=== PATIENT | female | born 1950 | race Caucasian/White ===

== ENCOUNTER 2018-06-13 01:48 | Outpatient (RCR) | payer MEDICARE, SELFPAY ==
[2018-06-13 08:55] LABS: HCT 40.1 % (36.0-46.0); HGB 13.9 g/dL (12.0-15.5)
[2018-06-13 09:19] LABS: Ferritin 393 ng/mL (8-388)
== END 2018-07-07 23:59 | disposition home or self-care (01) ==
LOC: INF 01:48
PROVIDERS: Naturopath; PCP Family Medicine; Visit Provider Internal Medicine
DX: R77.8 Other specified abnormalities of plasma proteins (principal)
CPT/HCPCS: 36415; 99195; 82728; 85014; 85018

== ENCOUNTER 2018-09-09 15:13 | Emergency (ER) | payer MEDICARE, SELFPAY ==
[2018-09-09 15:20] VITALS: BP 184/87; PULSE 69; RESP 18; TEMP 36.8; O2SAT 99
[2018-09-09 15:42] VITALS: RESP 18
[2018-09-09 16:00] LABS: Abs Immature Grans 0.02 k/cumm (0.0-0.09); Absolute Basophil Count 0.04 k/cumm (0.0-0.2); Absolute Eosinophil Count 0.11 k/cumm (0.0-0.7); Absolute Monocyte Count 0.43 k/cumm (0.11-0.7); Absolute Neutrophil Count 3.87 k/cumm (1.2-6.7); Basophils % 0.7; Eosinophils % 1.9; HCT 43.2 % (36.0-46.0); HGB 14.9 g/dL (12.0-15.5); Immature Grans % 0.3; Lymphocytes % 23.9; Mean Corp. HGB Concentration 34.5 g/dL (32.0-36.0); Mean Corpuscular Hemoglobin 33.3 pg (27.0-33.0); Mean Corpuscular Volume 96.4 fL (80-95); Mean Platelet Volume 9.9 fL (8.0-11.0); Monocytes % 7.3; Neutrophils % 65.9; Platelet Count 304 x1000/uL (130-400); RBC 4.48 m/cumm (4.00-5.20); RBC Distribution Width 11.9 % (11.7-14.6); White Blood Cell Count 5.87 k/cumm (4.4-10.8)
--- NOTE | 2018-09-09 16:08 | W.ED.GENAD ---
Discharge Plan Disposition Patient Disposition: HOME Condition: Improving Discharge Details Chief Complaint: Chest Pain Clinical Impression: Chest pain Primary Care Provider: Umm Gamboa V ED Provider: Herbert Rubin Discharge Instructions Instructions: Chest Pain (ED) Additional Instructions: Followup with Sheryl Herbert in clinic on Wednesday as planned. Home to rest today. Return if you develop recurrent chest discomfort, difficulty breathing, or any other acute concerns. Medical Decision Making 68-year-old female presents this afternoon for evaluation of months to years of intermittent episodes of anterior left-sided chest tightness that often radiates to her neck and arm. She has primarily attributed this to stress and is seeing her Nematology Teacher. Today she states she has increased stress due to the recent hospitalization of her . She states that he had an acute myocardial infarction and for this reason today she presents for evaluation of her intermittent episodes of chest discomfort. She denies any discomfort to me at this time. She is noted to have hypertension 184/87 with a pulse of 69. Differential diagnosis includes angina, acute coronary syndrome, PE, atypical chest discomfort, anxiety. Labs, x-ray, EKG. EKG does reveal evidence of LVH and Q waves that are present in leads I and aVL. Chest x-ray is unremarkable. Labs reassuring and notable for normal troponin. Her d-dimer is elevated and referred for CT scan of the chest. No definitive evidence of pulmonary embolus seen. Patient observed on equipment monitor phototypesetting repeat troponin obtained at 3 hours time and remains negative. Patient is improved, no further discomfort, she has follow-up in clinic on Wednesday. I did discuss with her that I recommend she have outpatient follow-up stress testing. She will discuss this with PMD at this weeks clinic appointment. Return precautions to the ER were discussed prior to discharge Lab Data Lab results reviewed: Yes I reviewed the patient's lab results. Laboratory Results - last 24 hr 09/09/18 09/09/18 09/09/18 15:44 15:44 15:44 WBC 5.87 RBC 4.48 Hgb 14.9 Hct 43.2 MCV 96.4 H MCH 33.3 H MCHC 34.5 RDW 11.9 Plt Count 304 MPV 9.9 Immature Gran % 0.3 Neutrophils % 65.9 Lymphocytes % 23.9 Monocytes % 7.3 Eosinophils % 1.9 Basophils % 0.7 Absolute Neutrophils 3.87 Absolute Lymphocytes 1.40 Absolute Monocytes 0.43 Absolute Eosinophils 0.11 Absolute Basophils 0.04 PT 9.3 INR 0.9 D-Dimer 885 H Sodium 140 Potassium 3.8 Chloride 104 Carbon Dioxide 28.0 Anion Gap 8.0 BUN 10 Creatinine 0.91 Estimated GFR/1.73 m2 >= 60.00 Glucose 93 Calcium 9.6 Magnesium 2.3 Total Bilirubin 0.9 Conjugated Bilirubin 0.16 AST 19 ALT 29 Alkaline Phosphatase 79 Troponin I < 0.02 NT-Pro-B Natriuret Pep 38 Total Protein 7.9 Albumin 4.1 09/09/18 18:15 WBC RBC Hgb Hct MCV MCH MCHC RDW Plt Count MPV Immature Gran % Neutrophils % Lymphocytes % Monocytes % Eosinophils % Basophils % Absolute Neutrophils Absolute Lymphocytes Absolute Monocytes Absolute Eosinophils Absolute Basophils PT INR D-Dimer Sodium Potassium Chloride Carbon Dioxide Anion Gap BUN Creatinine Estimated GFR/1.73 m2 Glucose Calcium Magnesium Total Bilirubin Conjugated Bilirubin AST ALT Alkaline Phosphatase Troponin I < 0.02 NT-Pro-B Natriuret Pep Total Protein Albumin ECG Data Attestation: I personally reviewed and interpreted this ECG (s) as follows: Prior ECG tracings: not available for review Interpretation: Normal sinus rhythm with a rate of 60, the QRS is narrow, LVH present, Q waves in leads I and aVL, no ST segment elevation HPI General Mode of arrival: ambulatory. Date/Time Provider Initiated Documentation: 09/09/18 15:32. Limitations to Documentation: no limitations. Information obtained by: patient. History of Present Illness 68 year old F presents to the emergency department with the chief complaint of Chest pain, neck pain, left arm pain over months time intermittently, described as mild, Quality is described as dull, and is localized to the chest. Patient neck and extremity. Patient started experiencing this month(s) and it has been intermittent. No relieving factors improve symptom(s), No exacerbating factors reported . Patient notes no other symptoms.; denies cough, fever/chills, shortness of breath and syncope. Patient did receive the following treatments prior to arrival, none Related Data Allergies Allergy/AdvReac Type Severity Reaction Status Date / Time No Known Allergies Allergy Unverified 09/09/18 15:24 General Stated Complaint: Chest Pain DYLON: 2 Review of Systems Review of Systems Undergoing treatment for high iron. Takes supplements prescribed by solutions consultant. Admits to increased stress in her life since her was admitted to the hospital recently. No lower extremity pain or swelling. 8 systems reviewed and otherwise negative [facility] Medical History Hypertension (Chronic) Surgical History Hx of cholecystectomy (Chronic) Social History Smoking/Tobacco Use Status: Never Alcohol Intake: never Substance use type: does not use Do you feel safe at home: Yes Do you feel safe in your relationship?: Yes Exam Narrative Exam Narrative: GEN: awake, alert, oriented 3. Pleasant, well groomed, interactive. HEAD: Normocephalic, atraumatic ENT: Mucous membranes moist, oropharynx unremarkable, External ear exam unremarkable EYES: PERRL, EOMI NECK: Full ROM, no MAUREEN, no menigismus CHEST/RESP: Nontender, clear to auscultation bilateral, no wheeze/rhonchi/rales CARDIOVASCULAR: RRR, no murmur, rub ruthie. 2+ Rad pulse bilateral ABDOMEN: Soft, nontender, no mass. +Bowel sounds EXT: Full ROM, no edema, no rash Neuro: Grossly normal neurologic exam, conversant, interactive. Psych: Speech fluent, thoughts congruent, affect normal Course Vital Signs Temperature 36.8 C 09/09/18 15:20 Pulse 69 09/09/18 15:20 Respiratory Rate 18 09/09/18 15:20 Blood Pressure 184/87 H 09/09/18 15:20 Pulse Oximetry 99 09/09/18 15:20 Temperature 36.8 C 09/09/18 15:20 Temperature Source Temporal Artery Scan 09/09/18 15:20 Pulse 69 09/09/18 15:20 Respiratory Rate 18 09/09/18 15:42 Respiratory Effort Non-Labored 09/09/18 15:42 Respiratory Depth Normal 09/09/18 15:42 Respiratory Pattern Normal 09/09/18 15:42 Blood Pressure 184/87 H 09/09/18 15:20 Blood Pressure Position Sitting 09/09/18 15:20 Pulse Oximetry 99 09/09/18 15:20 Oxygen Delivery Method Room Air 09/09/18 15:20 Oxygen Flow Rate 0 09/09/18 15:20 Pain Level 4 09/09/18 15:42 Lab/Test Results Lab/Test Results: Laboratory Tests Range/Units 09/09/18 15:44 WBC (4.4-10.8) k/cumm 5.87 RBC (4.00-5.20) m/cumm 4.48 Hgb (12.0-15.5) g/dL 14.9 Hct (36.0-46.0) % 43.2 MCV (80-95) fL 96.4 H MCH (27.0-33.0) pg 33.3 H MCHC (32.0-36.0) g/dL 34.5 RDW (11.7-14.6) % 11.9 Plt Count (130-400) x1000/uL 304 MPV (8.0-11.0) fL 9.9 Immature Gran % 0.3 Neutrophils % 65.9 Lymphocytes % 23.9 Monocytes % 7.3 Eosinophils % 1.9 Basophils % 0.7 Absolute Neutrophils (1.2-6.7) k/cumm 3.87 Absolute Lymphocytes (1.2-3.4) k/cumm 1.40 Absolute Monocytes (0.11-0.7) k/cumm 0.43 Absolute Eosinophils (0.0-0.7) k/cumm 0.11 Absolute Basophils (0.0-0.2) k/cumm 0.04
[2018-09-09 16:09] LABS: INR 0.9 (0.9-1.1); Prothrombin Time 9.3 sec (9.3-11.0)
--- NOTE | 2018-09-09 16:11 | ED.GENADUL_ITS ---
Discharge Plan Disposition Patient Disposition: HOME Condition: Improving Discharge Details Chief Complaint: Chest Pain Clinical Impression: Chest pain Primary Care Provider: Umm Gamboa V ED Provider: Herbert Rubin Discharge Instructions Instructions: Chest Pain (ED) Additional Instructions: Followup with Sheryl Herbert in clinic on Wednesday as planned. Home to rest today. Return if you develop recurrent chest discomfort, difficulty breathing, or any other acute concerns. Medical Decision Making 68-year-old female presents this afternoon for evaluation of months to years of intermittent episodes of anterior left-sided chest tightness that often radiates to her neck and arm. She has primarily attributed this to stress and is seeing her Smooth Stucco Resurfacer. Today she states she has increased stress due to the recent hospitalization of her . She states that he had an acute myocardial infarction and for this reason today she presents for evaluation of her intermittent episodes of chest discomfort. She denies any discomfort to me at this time. She is noted to have hypertension 184/87 with a pulse of 69. Differential diagnosis includes angina, acute coronary syndrome, PE, atypical chest discomfort, anxiety. Labs, x-ray, EKG. EKG does reveal evidence of LVH and Q waves that are present in leads I and aVL. Chest x-ray is unremarkable. Labs reassuring and notable for normal troponin. Her d-dimer is elevated and referred for CT scan of the chest. No definitive evidence of pulmonary embolus seen. Patient observed on manager math repeat troponin obtained at 3 hours time and remains negative. Patient is improved, no further discomfort, she has follow-up in clinic on Wednesday. I did discuss with her that I recommend she have outpatient follow-up stress testing. She will discuss this with PMD at this weeks clinic appointment. Return precautions to the ER were discussed prior to discharge Lab Data Lab results reviewed: Yes I reviewed the patient's lab results. Laboratory Results - last 24 hr 09/09/18 09/09/18 09/09/18 15:44 15:44 15:44 WBC 5.87 RBC 4.48 Hgb 14.9 Hct 43.2 MCV 96.4 H MCH 33.3 H MCHC 34.5 RDW 11.9 Plt Count 304 MPV 9.9 Immature Gran % 0.3 Neutrophils % 65.9 Lymphocytes % 23.9 Monocytes % 7.3 Eosinophils % 1.9 Basophils % 0.7 Absolute Neutrophils 3.87 Absolute Lymphocytes 1.40 Absolute Monocytes 0.43 Absolute Eosinophils 0.11 Absolute Basophils 0.04 PT 9.3 INR 0.9 D-Dimer 885 H Sodium 140 Potassium 3.8 Chloride 104 Carbon Dioxide 28.0 Anion Gap 8.0 BUN 10 Creatinine 0.91 Estimated GFR/1.73 m2 >= 60.00 Glucose 93 Calcium 9.6 Magnesium 2.3 Total Bilirubin 0.9 Conjugated Bilirubin 0.16 AST 19 ALT 29 Alkaline Phosphatase 79 Troponin I < 0.02 NT-Pro-B Natriuret Pep 38 Total Protein 7.9 Albumin 4.1 09/09/18 18:15 WBC RBC Hgb Hct MCV MCH MCHC RDW Plt Count MPV Immature Gran % Neutrophils % Lymphocytes % Monocytes % Eosinophils % Basophils % Absolute Neutrophils Absolute Lymphocytes Absolute Monocytes Absolute Eosinophils Absolute Basophils PT INR D-Dimer Sodium Potassium Chloride Carbon Dioxide Anion Gap BUN Creatinine Estimated GFR/1.73 m2 Glucose Calcium Magnesium Total Bilirubin Conjugated Bilirubin AST ALT Alkaline Phosphatase Troponin I < 0.02 NT-Pro-B Natriuret Pep Total Protein Albumin ECG Data Attestation: I personally reviewed and interpreted this ECG (s) as follows: Prior ECG tracings: not available for review Interpretation: Normal sinus rhythm with a rate of 60, the QRS is narrow, LVH present, Q waves in leads I and aVL, no ST segment elevation HPI General Mode of arrival: ambulatory . Date/Time Provider Initiated Documentation: 09/09/18 15:32 . Limitations to Documentation: no limitations . Information obtained by: patient . History of Present Illness 68 year old F presents to the emergency department with the chief complaint of Chest pain, neck pain, left arm pain over months time intermittently, described as mild, Quality is described as dull, and is localized to the chest. Patient neck an d extremity. Patient started experiencing this month(s) and it has been intermittent. No relieving factors improve symptom(s), No exacerbating factors reported . Patient notes no other symptoms.; denies cough, fever/chills, shortness of breath and syncope. Patient did receive the following treatments prior to arrival, none Related Data Allergies Allergy/AdvReac Type Severity Reaction Status Date / Time No Known Allergies Allergy Unverified 09/09/18 15:24 General Stated Complaint: Chest Pain DYLON: 2 Review of Systems Review of Systems Undergoing treatment for high iron. Takes supplements prescribed by reeling machine operator. Admits to increased stress in her life since her was admitted to the hospital recently. No lower extremity pain or swelling. 8 systems reviewed and otherwise negative [facility] Medical History Hypertension (Chronic) Surgical History Hx of cholecystectomy (Chronic) Social History Smoking/Tobacco Use Status: Never Alcohol Intake: never Substance use type: does not use Do you feel safe at home: Yes Do you feel safe in your relationship?: Yes Exam Narrative Exam Narrative: GEN: awake, alert, oriented 3. Pleasant, well groomed, interactive. HEAD: Normocephalic, atraumatic ENT: Mucous membranes moist, oropharynx unremarkable, External ear exam unremarkable EYES: PERRL, EOMI NECK: Full ROM, no MAUREEN, no menigismus CHEST/RESP: Nontender, clear to auscultation bilateral, no wheeze/rhonchi/rales CARDIOVASCULAR: RRR, no murmur, rub ruthie. 2+ Rad pulse bilateral ABDOMEN: Soft, nontender, no mass. +Bowel sounds EXT: Full ROM, no edema, no rash Neuro: Grossly normal neurologic exam, conversant, interactive. Psych: Speech fluent, thoughts congruent, affect normal Course Vital Signs Temperature 36.8 C 09/09/18 15:20 Pulse 69 09/09/18 15:20 Respiratory Rate 18 09/09/18 15:20 Blood Pressure 184/87 H 09/09/18 15:20 Pulse Oximetry 99 09/09/18 15:20 Temperature 36.8 C 09/09/18 15:20 Temperature Source Temporal Artery Scan 09/09/18 15:20 Pulse 69 09/09/18 15:20 Respiratory Rate 18 09/09/18 15:42 Respiratory Effort Non-Labored 09/09/18 15:42 Respiratory Depth Normal 09/09/18 15:42 Respiratory Pattern Normal 09/09/18 15:42 Blood Pressure 184/87 H 09/09/18 15:20 Blood Pressure Position Sitting 09/09/18 15:20 Pulse Oximetry 99 09/09/18 15:20 Oxygen Delivery Method Room Air 09/09/18 15:20 Oxygen Flow Rate 0 09/09/18 15:20 Pain Level 4 09/09/18 15:42 Lab/Test Results Lab/Test Results: Laboratory Tests Range/Units 09/09/18 15:44 WBC (4.4-10.8) k/cumm 5.87 RBC (4.00-5.20) m/cumm 4.48 Hgb (12.0-15.5) g/dL 14.9 Hct (36.0-46.0) % 43.2 MCV (80-95) fL 96.4 H MCH (27.0-33.0) pg 33.3 H MCHC (32.0-36.0) g/dL 34.5 RDW (11.7-14.6) % 11.9 Plt Count (130-400) x1000/uL 304 MPV (8.0-11.0) fL 9.9 Immature Gran % 0.3 Neutrophils % 65.9 Lymphocytes % 23.9 Monocytes % 7.3 Eosinophils % 1.9 Basophils % 0.7 Absolute Neutrophils (1.2-6.7) k/cumm 3.87 Absolute Lymphocytes (1.2-3.4) k/cumm 1.40 Absolute Monocytes (0.11-0.7) k/cumm 0.43 Absolute Eosinophils (0.0-0.7) k/cumm 0.11 Absolute Basophils (0.0-0.2) k/cumm 0.04
--- NOTE | 2018-09-09 16:11 | DI.RAD_ITS ---
SYMPTOM/DIAGNOSIS: LT CHEST DISCOMFORT. PA AND LATERAL CHEST: The heart is normal in size. The lungs are clear. The mediastinal structures and pleura appear intact. CONCLUSION: Normal chest.
[2018-09-09 16:15] LABS: ALT 29 U/L (12-78); AST 19 U/L (15-37); Albumin 4.1 g/dL (3.4-5.0); Alkaline Phosphatase 79 U/L (46-116); BUN 10 mg/dL (7-18); Bilirubin, Direct 0.16 mg/dL (0.00-0.20); Bilirubin, Total 0.9 mg/dL (0.2-1.0); CREATININE 0.91 mg/dL (0.55-1.02); Calcium 9.6 mg/dL (8.5-10.1); Chloride 104 mmol/L (98-107); Glucose 93 mg/dL (70-100); Magnesium 2.3 mg/dL (1.8-2.4); NT-proBNP 38 pg/mL; Potassium 3.8 mmol/L (3.5-5.1); Sodium 140 mmol/L (136-145); Total Protein 7.9 g/dL (6.4-8.2)
[2018-09-09 16:32] LABS: D-Dimer 885 ng/mlFEU (<500)
[2018-09-09 16:36] LABS: Troponin I < 0.02 ng/mL (0.00-0.06)
--- NOTE | 2018-09-09 16:48 | DI.VRAD_ITS ---
EXAM: XR Chest, 2 Views EXAM DATE/TIME: 09/09/2018 4:12 PM CLINICAL HISTORY: 68 years old, female; Signs and symptoms; Patient HX: Chest discomfort, left TECHNIQUE: Imaging protocol: XR of the chest, 2 views. COMPARISON: No relevant prior studies available. FINDINGS: Lungs: There are no pulmonary infiltrates or lung nodules. Pleural space: There is no evidence of pleural effusion or pneumothorax. Heart/Mediastinum: The cardiomediastinal silhouette is normal. Bones/joints: Mild degenerative change the breasts. No acute osseous findings. Mild dextroscoliosis. IMPRESSION: No acute cardiopulmonary disease. Dictated and Authenticated by: Ana Hollis MD. Ordering:SUSAN Godinez MD
--- NOTE | 2018-09-09 17:10 | DI.CT_ITS ---
SYMPTOM/DIAGNOSIS: LT CHEST PAIN, ELEVATED D DIMER PE CHEST CT: CT angiography was performed with multi slice acquisition and multi planar and 3D reconstruction. CT angiography of the chest was performed with a bolus infusion of 100 cc's of Omnipaque 350. There is no evidence of pulmonary embolic disease. No thoracic aortic dissection or aneurysm. No mediastinal or hilar adenopathy. The lungs are clear. Tracheobronchial tree appears intact. No pleural effusion or pneumothorax. Images obtained through the upper abdomen show unremarkable appearance of visualized portions of liver, spleen, pancreas and adrenals. CONCLUSION: Negative CT angiography of the chest.
[2018-09-09] MEDS: Omnipaque 350 MG/ML 100 ML BTL IJ (17:12)
--- NOTE | 2018-09-09 17:36 | DI.VRAD_ITS ---
EXAM: CT Angiography Chest With Contrast EXAM DATE/TIME: 09/09/2018 4:46 PM CLINICAL HISTORY: 68 years old, female; Left-sided chest pain; Patient HX: Elevated d-dimer TECHNIQUE: Imaging protocol: Axial computed tomographic angiography images of the chest with intravenous contrast using CT angiography protocol. Coronal and sagittal reformatted images were created and reviewed. 3D rendering: MIP reconstructed images were created and reviewed. Contrast material: OMNIPAQUE 350; Contrast volume: 100 ml; Contrast route: IV RAC; COMPARISON: CR XR CHEST 2V PA LATERAL 09/09/2018 4:22 PM FINDINGS: Pulmonary arteries: The heterogenous appearance of multiple segmental/subsegmental pulmonary arteries/branches may be due to motion artifact or inadequate enhancement. One or more subsegmental pulmonary emboli cannot be excluded. Aorta: The aorta is normal in caliber. No evidence of aortic dissection. Lungs: Scarring in the anterior segment of the RIGHT upper lobe, medial segment of the RIGHT middle lobe, and lingula. No focal consolidation or mass. Pleural space: There is no evidence of pleural effusion or pneumothorax. Heart: The heart is normal in size. There is no evidence of pericardial effusion. Mediastinum: Hiatus hernia. Stomach and bowel: Thickening of the wall the stomach is likely due to incomplete distention. Lymph nodes: No lymphadenopathy. Bones/joints: Mild degenerative changes of the thoracic and lumbar spine. No acute fracture. Soft tissues: Soft tissues are unremarkable. The soft tissues are unremarkable. IMPRESSION: 1. No definite evidence of pulmonary embolus. Subsegmental pulmonary emboli cannot be excluded. 2. Hiatus hernia. Dictated and Authenticated by: Ana Hollis MD. Ordering:SUSAN Godinez MD
[2018-09-09 18:51] LABS: Troponin I < 0.02 ng/mL (0.00-0.06)
[2018-09-09 19:08] VITALS: BP 164/62; PULSE 62; RESP 19; O2SAT 98
--- NOTE | 2018-09-09 19:10 | NUR.NOTE ---
Nursing Note: DC IV intact bleeding controlled. Discussed discharge instructions, OTC meds and follow up care with pt. Pt verbalized an understanding. Pt ambulated out the door with steady gait.
== END 2018-09-09 19:11 | disposition home or self-care (01) ==
PROVIDERS: Emergency Provider Emergency Medicine; PCP Family Medicine
DX: R07.9 Chest pain, unspecified (principal); I10 Essential (primary) hypertension
CPT/HCPCS: 36415; 71275; 80053; 80076; 93005; 99285; 71046; 83735; 83880; 84484; 85025; 85379; 85610; 93010; 99284; J3490

== ENCOUNTER 2018-09-12 01:23 | Outpatient (RCR) | payer MEDICARE, SELFPAY ==
[2018-09-12 09:14] LABS: HCT 41.9 % (36.0-46.0); HGB 14.3 g/dL (12.0-15.5)
[2018-09-12 09:51] LABS: Ferritin 349 ng/mL (8-388)
== END 2018-10-07 23:59 | disposition home or self-care (01) ==
LOC: INF 01:23
PROVIDERS: Naturopath; PCP Family Medicine; Visit Provider Internal Medicine
DX: R79.0 Abnormal level of blood mineral (principal)
CPT/HCPCS: 36415; 99195; 82728; 85014; 85018

== ENCOUNTER 2018-09-13 16:17 | Outpatient (CLI) | payer MEDICARE, SELFPAY ==
[2018-09-13 19:02] LABS: Iron 101 ug/dL (50-175); Total Iron Binding Capacity 269 ug/dL (250-450); Transferrin Sat 38 % (15-50)
[2018-09-13 19:24] LABS: ALT 26 U/L (12-78); AST 16 U/L (15-37); Albumin 3.8 g/dL (3.4-5.0); Alkaline Phosphatase 69 U/L (46-116); Bilirubin, Total 0.9 mg/dL (0.2-1.0); Cholesterol 222 mg/dL (50-200); Ferritin 314 ng/mL (8-388); Glucose 83 mg/dL (70-100); HDL Cholesterol 49 mg/dL (40-60); LDL CHOLESTEROL 145 mg/dL (<100); Total Protein 6.8 g/dL (6.4-8.2); Triglyceride 211 mg/dL (30-150)
[2018-09-13 20:45] LABS: Bilirubin, Direct 0.15 mg/dL (0.00-0.20)
[2018-09-15 06:39] LABS: Vitamin D 25 Total 27.6 ng/ml (30-100)
[2018-09-20 08:40] LABS: Specimen WB Whole Blood
== END 2018-09-13 16:37 ==
PROVIDERS: PCP Family Medicine; Visit Provider Nurse Practitioner Family
DX: R78.89 Finding of other specified substances, not normally found in blood (principal); E55.9 Vitamin D deficiency, unspecified; R79.0 Abnormal level of blood mineral; R06.02 Shortness of breath; R07.9 Chest pain, unspecified; R53.83 Other fatigue
CPT/HCPCS: 36415; 80061; 80076; 82306; 82947; 83721; 81256; 82728; 83540; 83550

== ENCOUNTER 2018-09-19 00:07 | Outpatient (CLI) | payer MEDICARE, SELFPAY ==
--- NOTE | 2018-09-19 14:10 | ETT_ITS ---
*[facility]* *[facility]* [address] [place] [address] Stress Electrocardiography Angel Luis protocol Date of study: 09/19/2018 *PATIENT PRESENTATION* Height: 162.6cm (64in) Blood Pressure: Weight: 113.6kg (250lb) BSA: 2.33m^2 Referring physician: Sheryl Herbert Ordering physician: hSeryl Herbert Impressions: Normal study after maximal exercise. Summary: 1. Stress ECG conclusions: The stress ECG is negative. Wagner treadmill score: 6. This score predicts a low risk of cardiac events. 2. Stress: The target heart rate was achieved. Indication: R07.9. History: REASON FOR VISIT: PT REPORTS MONTHS TO YEARS OF INTERMITTENT EPISODES OF ANTERIOR LEFT -SIDED CHEST TIGHTNESS. SHE STATES THAT RECENTLY HER CHEST TIGHTNESS HAS RADIATED UP INTO HER NECK THIS IS WHAT PROMPTED HER TO GO TO THE ED ON 09/09/18. SHE RULED OUT FOR ACS. SHE IS HERE TODAY FOR FURTHER EVALUATION. Risk factors: BROTHER HAD AN MA AT THE AGE OF 50 YEARS. Family history of coronary artery disease. Obesity. Dyslipidemia. Cholesterol: 222mg/dl. HDL: 49mg/dl. LDL: 145mg/dl. Triglycerides: 211mg/dl. ALLERGIES: NO KNOWN DRUG ALLERGIC TO MUSCLES. MEDICATIONS: NITROGLYCERIN 0.4 MG SL PRN. VITAMINS. ASPIRIN 81 MG DAILY. Protocol: Angel Luis protocol. Baseline ECG: SINUS RHYTHM. HR 55 BPM. Stress protocol: + +---+ + !Stage !HR !BP (mmHg) ! + +---+ + !Baseline supine !55 !132/64 (87) ! + +---+ + !Baseline standing !69 !136/70 (92) ! + +---+ + !Stage I; 1.7mph, 10degrees; 3 min !117! ! + +---+ + !Stage II; 2.5mph, 12degrees; 3 min!138!160/80 (107)! + +---+ + !Peak stress !138! ! + +---+ + !Recovery; 1 min !105!180/90 (120)! + +---+ + !Recovery; 4 min !72 !160/76 (104)! + +---+ + !Recovery; 6 min !73 !144/70 (95) ! + +---+ + * Stress results: Maximal heart rate during stress was 138bpm (90% of maximal predicted heart rate). The maximal predicted heart rate was 153bpm. The target heart rate was achieved. The rate-pressure product for the peak heart rate and blood pressure was 22760fm Hg/min. Stress ECG: TREADMILL. PORTION OF STRESS TEST ENDED IN 6 MINUTES & 1 SECOND. NORMAL HEART RATE AND BLOOD PRESSURE RESPONSE TO EXERCISE MAX HR = 138 % OF TARGET = 90 NO ECTOPY APPROXIMATE METS ACHIEVED = 7.05 NO ANGINA NO SIGNIFICANT ST SEGMENT CHANGES ABOVE AVERAGE FUNCTIONAL CAPACITY FOR EXERCISE. The stress ECG is negative. Wagner treadmill score: 6. This score predicts a low risk of cardiac events. Study data: Marcus Cartagena MD supervised and was readily available during the procedure. This study was interpreted by [facility]. Study status: Routine. Consent: The risks, benefits, and alternatives to the procedure were explained to the patient and informed consent was obtained. Procedure: Initial setup. A baseline ECG was recorded. Surface ECG leads and manual cuff blood pressure measurements were monitored. Heart sounds: Normal. Lung sounds: Normal. Treadmill exercise testing was performed using the Angel Luis protocol. Study completion: The patient tolerated the procedure well and was discharged from the lab. Discharge: The patient left the laboratory in stable condition. Birthdate: Patient birthdate: 1950. Sex: Gender: female. Study date: Study date: 09/19/2018. Study time: 00:01 AM. Electronically signed by Marcus Cartagena MD 09/19/2018 18:01
== END 2018-09-19 00:27 ==
PROVIDERS: PCP Family Medicine; Visit Provider Nurse Practitioner Family
DX: R06.02 Shortness of breath (principal); R07.9 Chest pain, unspecified; Z82.49 Family history of ischemic heart disease and other diseases of the circulatory system
CPT/HCPCS: 93016; 93018; 93017

== ENCOUNTER 2018-11-21 17:25 | Outpatient (REF) | payer MEDICARE, SELFPAY ==
[2018-11-21 21:19] LABS: Absolute Basophil Count 0.01 k/cumm (0.0-0.2); Absolute Lymphocyte Count 1.26 k/cumm (1.2-3.4); Absolute Monocyte Count 0.41 k/cumm (0.11-0.7); Absolute Neutrophil Count 3.99 k/cumm (1.2-6.7); Basophils % 0.2; Eosinophils % 3.4; HCT 40.4 % (36.0-46.0); HGB 13.7 g/dL (12.0-15.5); Lymphocytes % 21.5; Mean Corp. HGB Concentration 33.9 g/dL (32.0-36.0); Mean Corpuscular Volume 97.3 fL (80-95); Mean Platelet Volume 10.2 fL (8.0-11.0); Neutrophils % 67.9; Platelet Count 294 x1000/uL (130-400); RBC 4.15 m/cumm (4.00-5.20); RBC Distribution Width 12.5 % (11.7-14.6); White Blood Cell Count 5.87 k/cumm (4.4-10.8)
[2018-11-21 21:40] LABS: Calculated LDL 114 mg/dL; Cholesterol 210 mg/dL (50-200); HDL Cholesterol 55 mg/dL (40-60); Triglyceride 205 mg/dL (30-150)
== END 2018-11-21 17:45 ==
LOC: NCHCN 17:25
PROVIDERS: PCP Family Medicine; Visit Provider Nurse Practitioner Family
DX: N89.8 Other specified noninflammatory disorders of vagina (principal); E55.9 Vitamin D deficiency, unspecified; R82.79 Other abnormal findings on microbiological examination of urine; E78.89 Other lipoprotein metabolism disorders
CPT/HCPCS: 80061; 83721; 85025; 87086; 87480; 87510; 87660

== ENCOUNTER 2019-02-01 01:21 | Outpatient (RCR) | payer MEDICARE, SELFPAY | END 2019-02-06 23:59 | disposition home or self-care (01) | LOC: INF 01:21 | PROVIDERS: PCP Family Medicine; Visit Provider Naturopath | DX: E83.119 Hemochromatosis, unspecified (principal) | CPT/HCPCS: 99195 ==

== ENCOUNTER 2019-02-01 14:09 | Outpatient (CLI) | payer MEDICARE, SELFPAY ==
[2019-02-01 13:13] LABS: Ferritin 253 ng/mL (8-388)
== END 2019-02-01 14:29 ==
PROVIDERS: PCP Family Medicine; Visit Provider Naturopath
DX: R77.8 Other specified abnormalities of plasma proteins (principal); R79.89 Other specified abnormal findings of blood chemistry; E83.119 Hemochromatosis, unspecified
CPT/HCPCS: 36415; 99195; 82728

== ENCOUNTER 2019-02-16 01:13 | Outpatient (CLI) | payer MEDICARE, SELFPAY ==
--- NOTE | 2019-02-16 15:15 | DI.US_ITS ---
EXAM: US PELVIS TRANSVAGINAL CLINICAL HISTORY: postmenopausal bleeding, N95.0. TECHNIQUE: Ultrasound performed using standard protocol. COMPARISON: No exams were available for comparison FINDINGS: Pelvic ultrasound was performed according to the usual protocol. Transabdominal and transvaginal sca nning was performed. There are prominent renal pelves bilaterally versus renal medullary cysts. No evidence of hydronephrosis. 33 millimeter inferior right renal pole cyst noted. Uterus is unremarkable in appearance. Endometrial stripe is 7 millimeters in thickness which is abno rmal for a postmenopausal patient and there is heterogeneity of the endometrium. Endometrial biopsy should be considered to exclude neoplasm. There is a septated cyst of the left ovary versus 2 adjacent cysts, maximum diameter about 13 millime ters. No abnormal associated vascular flow. No solid component. IMPRESSION: Endometrial biopsy should be considered to evaluate abnormally heterogeneous and thickened endometriu m. No other significant findings.
== END 2019-02-16 01:33 ==
PROVIDERS: PCP Nurse Practitioner Family; Visit Provider Obstetrics & Gynecology
DX: N95.0 Postmenopausal bleeding (principal); N28.1 Cyst of kidney, acquired; N83.292 Other ovarian cyst, left side; R93.89 Abnormal findings on diagnostic imaging of other specified body structures
CPT/HCPCS: 76830; 76856

== ENCOUNTER 2019-02-16 16:27 | Outpatient (REF) | payer MEDICARE, SELFPAY ==
--- NOTE | 2019-02-16 16:17 | ENDOMET_PTH ---
PATIENT: Karen Tyson LOC: [facility] U#:[id number] AGE/SX: 68/F ROOM: RE02/16/[address]: Fallon De Souza MD : 1950 BED: DIS: 02/16/2019 SPEC #: [id number] RECD: 02/16/19 18:08 STATUS: BONNIE REQ #: [id number] NIRAJ: 02/16/19 16:[address]: Fallon De Souza DEPT: Surgical Specimen RECD BY: Ariadna Fisher ENTERED: 02/16/19 18:08 SP TYPE: Endomet OTHR DR: Sheryl Herbert Tissues: 1 - ENDOMETRIUM BX/CURRETTE Procedures: GROSS AND MICRO LEVEL 4 IMMUNOPEROXIDASE STAIN P16 IPEX Comments: [id number]
== END 2019-02-16 16:47 ==
LOC: LBN 16:27
PROVIDERS: PCP Nurse Practitioner Family; Visit Provider Obstetrics & Gynecology
DX: C54.1 Malignant neoplasm of endometrium (principal); N95.0 Postmenopausal bleeding
CPT/HCPCS: 88305; 88342; 88361

== ENCOUNTER 2019-04-13 02:08 | Outpatient (RCR) | payer MEDICARE, SELFPAY | END 2019-05-09 23:59 | disposition home or self-care (01) | LOC: INF 02:08 | PROVIDERS: PCP Nurse Practitioner Family; Visit Provider Naturopath | DX: R77.8 Other specified abnormalities of plasma proteins (principal) | CPT/HCPCS: 99195 ==

== ENCOUNTER 2019-04-13 12:35 | Outpatient (CLI) | payer MEDICARE, SELFPAY ==
[2019-04-13 13:03] LABS: HCT 39.6 % (36.0-46.0); HGB 13.6 g/dL (12.0-15.5)
[2019-04-13 13:56] LABS: Ferritin 185 ng/mL (8-252)
== END 2019-04-13 12:55 ==
PROVIDERS: PCP Nurse Practitioner Family; Visit Provider Naturopath
DX: R77.8 Other specified abnormalities of plasma proteins (principal)
CPT/HCPCS: 36415; 99195; 82728; 85014; 85018

== ENCOUNTER 2019-06-15 02:14 | Outpatient (RCR) | payer MEDICARE, SELFPAY | END 2019-07-08 23:59 | disposition home or self-care (01) | LOC: INF 02:14 | PROVIDERS: PCP Nurse Practitioner Family; Visit Provider Naturopath | DX: R69 Illness, unspecified (principal) ==

== ENCOUNTER 2019-07-17 01:33 | Outpatient (RCR) | payer MEDICARE, SELFPAY | END 2019-08-08 23:59 | disposition home or self-care (01) | LOC: INF 01:33 | PROVIDERS: PCP Nurse Practitioner Family; Visit Provider Naturopath | DX: E83.119 Hemochromatosis, unspecified (principal) | CPT/HCPCS: 99195 ==

== ENCOUNTER 2019-07-17 09:35 | Outpatient (CLI) | payer MEDICARE, SELFPAY ==
[2019-07-17 11:15] LABS: Ferritin 153 ng/mL (8-252)
== END 2019-07-17 09:55 ==
PROVIDERS: PCP Nurse Practitioner Family; Visit Provider Naturopath
DX: E83.19 Other disorders of iron metabolism (principal)
CPT/HCPCS: 36415; 99195; 82728

== ENCOUNTER 2019-11-16 01:02 | Outpatient (RCR) | payer MEDICARE, SELFPAY ==
[2019-11-16] MEDS: Normal Saline Flush 10 ML SYR IVP (13:12)
[2019-11-16 13:50] LABS: Ferritin 92 ng/mL (8-252)
== END 2019-12-08 23:59 | disposition home or self-care (01) ==
LOC: INF 01:02
PROVIDERS: PCP Nurse Practitioner Family; Visit Provider Naturopath
DX: E83.118 Other hemochromatosis (principal)
CPT/HCPCS: 36415; 99195; 82728

== ENCOUNTER 2020-03-21 01:45 | Outpatient (RCR) | payer MEDICARE, SELFPAY | END 2020-04-08 23:59 | disposition home or self-care (01) | LOC: INF 01:45 | PROVIDERS: PCP Nurse Practitioner Family; Visit Provider Naturopath ==

== ENCOUNTER 2020-04-18 13:00 | Outpatient (RCR) | payer MEDICARE, SELFPAY ==
[2020-04-18 14:01] LABS: Ferritin 102 ng/mL (8-252)
== END 2020-05-09 23:59 | disposition home or self-care (01) ==
LOC: INF 13:00
PROVIDERS: PCP Nurse Practitioner Family; Visit Provider Naturopath
DX: E83.119 Hemochromatosis, unspecified (principal)
CPT/HCPCS: 36415; 82728

== ENCOUNTER 2020-07-11 14:52 | Outpatient (REF) | payer MEDICARE, SELFPAY ==
--- OUTSIDE RECORDS SUMMARY | 2020-07-11 14:57 | XMS_ITS ---
:1950 External Reference #:[id number] Author Care Team Providers Name Role Phone Kassidominic Primary Care Provider Unavailable Allergies None recorded. Medications Name Status Start Date Stop Date ? ? compounded medication Active ? Not availa ble BP SUPPORT BP support 60 drops 3xday nitroglycerin 0.4 mg sublingual tablet Active ? Not available Problems Name Status Onset Date Source ? Essential Hypertension Active 02/23/2018 ? Family History of Diabetes Mellitus Active 02/23/2018 ? Bleeding from Nose Active 02/24/2018 ? Obesity Active 04/15/2018 ? Dietary Management Surveillance Active 04/15/2018 ? Serum Ferritin High Active 04/15/2018 ? Vitamin D Deficiency Active 06/13/2018 ? Hyperlipidemia Active 10/26/2018 ? Angina Pectoris Active 10/26/2018 ? Procedures Date Name Performed by ? 02/07/1998 Cholecystectomy Information not avai lable 10/08/1988 Other Information not avai lable Notes: gall bladder Results Lab Results None recorded. Past Encounters 05/30/2020 Essential Hypertension; Hyperlipidemia; Increased Frequency of Urination; Serum Ferritin High Karime Ernandez, ND: [address] [place] [address], Ph. [phone] Social History Tobacco Smoking Status Never Smoker Vaccine List None recorded. Plan of Care Patient Instructions 1. Get bloodwork that we were not a ble to get today at [facility] as soon as possible- 2. Bp take the suggested dose- 2-3 times a day to keep blood pressure in range 3. serum ferritin is ok but best range i s from 50-80- to lower incidence of other conditions, like BP, diabetes etc 4. For eye health- PRODHA eye 1 cap 2xda y or equivalent- but getting BP consistenly in normal 110-75 range is robin Urinalysis included in [facility] orders Reminders Provider Appointments None recorded. ? ? Lab None recorded. ? ? Referral None recorded. ? ? Procedures None recorded. ? ? Surgeries None recorded. ? ? Imaging None recorded. ? ? Vitals 05/30/2020 11:45AM ESTABLISHED PATIENT 46 Weight Blood Pressure 260 lbs 170/86 mm[Hg] 12/22/2018 11:15AM ESTABLISHED PATIENT 45 Height Weight BMI Blood Pressure 5 ft 2 in 248 lbs 45.4 kg/m2 144/86 mm[Hg] 10/20/2018 01:00PM ESTABLISHED PATIENT 45 Height Blood Pressure 5 ft 2 in 130/80 mm[Hg] 09/01/2018 11:15AM ESTABLISHED PATIENT 30 Height Blood Pressure 5 ft 2 in 140/72 mm[Hg] 07/07/2018 11:15AM ESTABLISHED PATIENT 30 Height Weight BMI 5 ft 2 in 254 lbs 16 oz 46.6 kg/m2 06/09/2018 11:15AM ESTABLISHED PATIENT 30 Height Weight BMI 5 ft 2 in 254 lbs 16 oz 46.6 kg/m2 04/14/2018 11:15AM ESTABLISHED PATIENT 30 Height Weight BMI Blood Pressure 5 ft 2 in 252 lbs 6.4 oz 46.2 kg/m2 168/78 mm[Hg] 03/17/2018 02:15PM ESTABLISHED PATIENT 30 Height Blood Pressure 5 ft 2 in 146/78 mm[Hg] 02/23/2018 02:00PM NEW PATIENT 90 Height Weight BMI Blood Pressure 5 ft 2 in 250 lbs 16 oz 45.9 kg/m2 166/100 mm[Hg]
--- OUTSIDE RECORDS SUMMARY | 2020-07-11 14:58 | XMS_ITS | Encounter Summary ---
:1950 External Reference #:[id number] Author Reason for Visit None recorded. Assessment and Plan Assessment Note I spent a total of 60 minutes face to face time with this patient and 35 minutes of that time was spent in counseling and coordination of care with that patient as described in the progress note and /or: recommended diagnostic studies Risk factor reduction instructions for treatment and follow-up diagnostic results and impressions 1. Essential hypertension ? high blood pressure: care instructions ? learning about high blood pressure ? CMP, serum or plasma 2. Hyperlipidemia ? high cholesterol: care ins tructions ? lipid panel, serum 3. Increased frequency of urinat ion ? frequent urination: care i nstructions ? urinalysis, dipstick ? urinalysis, microscopic ? glycohemoglobin, total, bl ood ? CBC 4. Serum ferritin high H36D homozygous mutation Discussion Note: None recorded. Plan of Care Patient Instructions 1. Get bloodwork that we were not a ble to get today at [facility] as soon as possible- 2. Bp take [...] 110-75 range is robin Urinalysis included in [facility] orders Reminders Provider Appointments None recorded. ? ? Lab Urinalysis, ? Dipstick 05/30/2020 ? Urinalysis, Bio-R eference Microscopic 05/30/2020 [facility] [place] ? Lipid Panel, Bio- Reference Serum 05/30/2020 [facility] [place] [facility] ? CMP, Serum or Bio -Reference Plasma 05/30/2020 [facility] [place] [facility] ? Bio-Referen ce Glycohemoglobin, Total, 05/30/2020 [facility] [place] ? Cbc Bio-Referen ce 05/30/2020 [facility] [place] [facility] Referral None recorded. ? ? Procedures None recorded. ? ? Surgeries None recorded. ? ? Imaging None recorded. ? ? Medications Name Start Date ? ? compounded medication ? BP SUPPORT BP support 60 drops 3xday nitroglycerin 0.4 mg sublingual tablet ? Medications Administered None recorded. Vitals Weight Blood Pressure 260 lbs 170/86 mm[Hg] Results Lab Results None recorded. Allergies None recorded. Problems Name Status Onset Date Source ? [...] Information not avai lable Notes: gall bladder Vaccine List None recorded. Social History Tobacco Smoking Status Never Smoker Most Recent Tobacco Use Screening 03/17/2018 Family History Relation Problem Onset Age of Age Notes Mother Chronic depression (No Information) N/A (No N otes) Mother Diabetes mellitus (No Information) N/A (No No desiree) Sister Chronic depression (No Information) N/A (No N otes) Functional Status Unknown. Past Encounters 05/30/2020 Essential Hypertension; Hyperlipidemia; Increased Frequency of Urination; Serum Ferritin High Karime Oma, ND: [address] [place] [address], Ph. [phone] History of Present Illness Note: she brought in BP log- <div>last week 115-125</div><div>over</div><div>75- 82</div><div>
</div><div>she decreased bP support- tincturedown to 1 xday</div><div>at home seems fine- she is 170/86 here today - </div><div> </div><div>she feels very stressed about driving- </div><div>she brought a slide show to show me- </div><div>
</div><div>she had a hemorrage in her eye she said DR. Mtz was going to call me</div><div>she has dry eyes </div><div>and puts castor oil in them- hexane free?</div><div>
</di v><div>exercise walks 1x week- </div><div> 12 pound weight gain since 2018</div><div>
</div><div>her ferritn was 102 this last time she was 92 in November and 153 in July 2019</div><div>
</div><div>she is still doing the ip6 but she decreased to 1xday she will go back on 3xday</div><div> she had bladder cancer and she stopped everything</div><div>
</div><div>she doesnt do citrus at all- </div><div>she is eating more red meat- </div><div>she doesnt drink etoh- </div><div>
</div><div>she says she is craving gin and tonic- she </div><div>has a new routine of jumping jacks and run in place</div><div>
</div><div>she is moving wood- </div><div>up and down stairs-</div><div>4 trips- </div><div>and she will egt SOB- </div><div>& lt;br></div><div>she hasnt been taking cholesterol support</div><div>she is frustrated she has no conrado in diets - and doesnt think it matters- </div><div><br&g t;</div><div>she absolutley loves what she eats- she doesnt buy store bought cookies- she takes vinegar water bf she goes to bed- </div><div>
</div><div>bladder cancer- was having blood in urine- </div><div>saw in toilet- pink in urine- </div><div>so she progcrastinates- and she did an internal exam chalo stephenson- but she had a web engineer appt- </div><div>
</div><div>she has week lungs and has had cancer</div><div>her sister in law is from covid- </div><div>
</div><div>since she has been taking applecider vinegar she sleep 5 hours at a time and bf she was waking up every 2 hours to pee- </div><div>
</div> Review of Systems None recorded. Physical Exam None recorded.
[2020-07-11 15:50] LABS: Abs Immature Grans 0.01 10^3/uL (0.0-0.06); Absolute Basophil Count 0.07 10^3/uL (0.0-0.2); Absolute Eosinophil Count 0.17 10^3/uL (0.0-0.7); Absolute Lymphocyte Count 1.34 10^3/uL (1.2-3.4); Absolute Neutrophil Count 3.09 10^3/uL (1.2-6.7); Basophils % 1.4; Eosinophils % 3.3; HCT 42.1 % (36.0-46.0); HGB 14.5 g/dL (11.2-15.7); Immature Grans % 0.2; Lymphocytes % 26.4; MCH 33.5 pg (27.0-33.0); MCHC 34.4 % (32.0-36.0); MCV 97.2 fL (80-95); MPV 9.6 fL (8.0-11.0); Monocytes % 7.9; Neutrophils % 60.8; Nucleated RBC 0 %; Platelet Count 327 10^3/uL (130-400); RBC 4.33 10^6/uL (3.93-5.22); RDW-SD 43.5 fL; WBC 5.08 10^3/uL (4.4-10.8)
[2020-07-11 16:23] LABS: ALT 24 U/L (14-59); AST 18 U/L (15-37); Albumin 3.7 g/dL (3.4-5.0); Alkaline Phosphatase 77 U/L (46-116); Anion Gap 8.5 mmol/L (3-11); BUN 13 mg/dL (7-18); Bilirubin, Total 0.8 mg/dL (0.2-1.0); CO2 27.5 mmol/L (21.0-32.0); Calcium 9.6 mg/dL (8.5-10.1); Calculated LDL 173 mg/dL (<100); Chloride 108 mmol/L (98-107); Cholesterol 264 mg/dL (<200); Estimated GFR 54.97 (mL/min/1.73m2); Glucose 93 mg/dL (74-106); HDL Cholesterol 57 mg/dL (40-60); Potassium 4.6 mmol/L (3.5-5.1); Sodium 144 mmol/L (136-145); Triglyceride 172 mg/dL (<150)
[2020-07-11 16:45] LABS: Hemoglobin A1C 5.4 % (<5.7)
[2020-07-11 17:41] LABS: Vitamin D 25 Total 59.6 ng/ml (30-100)
== END 2020-07-11 14:53 | disposition home or self-care (01) ==
LOC: NCHCN 14:52
PROVIDERS: PCP Nurse Practitioner Family; Visit Provider Nurse Practitioner Family
DX: E55.9 Vitamin D deficiency, unspecified (principal); E78.9 Disorder of lipoprotein metabolism, unspecified; E66.9 Obesity, unspecified; C54.1 Malignant neoplasm of endometrium; E83.119 Hemochromatosis, unspecified
CPT/HCPCS: 80053; 80061; 82306; 83036; 85025

== ENCOUNTER 2020-08-22 13:00 | Outpatient (RCR) | payer MEDICARE, SELFPAY ==
[2020-08-22 13:34] LABS: Ferritin 116 ng/mL (8-252)
[2020-08-22 14:08] LABS: HCT 40.9 % (36.0-46.0); HGB 13.7 g/dL (11.2-15.7)
[2020-08-22] MEDS: Normal Saline Flush 10 ML SYR IVP (14:54)
== END 2020-09-06 23:59 | disposition home or self-care (01) ==
LOC: INF 13:00
PROVIDERS: PCP Nurse Practitioner Family; Visit Provider Naturopath
DX: E83.119 Hemochromatosis, unspecified (principal)
CPT/HCPCS: 36415; 99195; 82728; 85014; 85018

== ENCOUNTER 2020-12-19 13:00 | Outpatient (RCR) | payer MEDICARE, SELFPAY ==
[2020-12-19 14:34] LABS: Ferritin 119 ng/mL (8-252)
[2020-12-19] MEDS: Normal Saline Flush 10 ML SYR IVP (15:06)
== END 2021-01-07 23:59 | disposition home or self-care (01) ==
LOC: INF 13:00
PROVIDERS: PCP Nurse Practitioner Family; Visit Provider Naturopath
DX: E83.118 Other hemochromatosis (principal)
CPT/HCPCS: 36415; 99195; 82728; 85014; 85018

== ENCOUNTER 2021-04-25 13:00 | Outpatient (RCR) | payer MEDICARE, SELFPAY ==
[2021-04-25 13:24] LABS: HCT 44.9 % (36.0-46.0); HGB 14.8 g/dL (11.2-15.7)
[2021-04-25] MEDS: Normal Saline Flush 10 ML SYR IVP (13:46)
[2021-04-25 13:50] LABS: Ferritin 92 ng/mL (8-252)
== END 2021-05-09 23:59 | disposition home or self-care (01) ==
LOC: INF 13:00
PROVIDERS: PCP Nurse Practitioner Family; Visit Provider Naturopath
DX: E83.119 Hemochromatosis, unspecified (principal)
CPT/HCPCS: 36415; 82728; 85014; 85018

== ENCOUNTER 2021-09-03 03:40 | Outpatient (RCR) | payer MEDICARE, SELFPAY ==
[2021-09-03 13:05] LABS: HCT 44.4 % (36.0-46.0); HGB 14.9 g/dL (11.2-15.7)
[2021-09-03 13:36] LABS: Ferritin 153 ng/mL (8-252)
[2021-09-03] MEDS: Normal Saline Flush 10 ML SYR IVP (14:32)
== END 2021-09-06 23:59 | disposition home or self-care (01) ==
LOC: INF 03:40
PROVIDERS: PCP Nurse Practitioner Family; Visit Provider Naturopath
DX: E83.119 Hemochromatosis, unspecified (principal)
CPT/HCPCS: 36415; 99195; 82728; 85014; 85018

== ENCOUNTER 2022-02-05 03:59 | Outpatient (RCR) | payer MEDICARE, SELFPAY ==
[2022-02-05 12:35] LABS: HCT 42.1 % (36.0-46.0); HGB 14.4 g/dL (11.2-15.7); MCH 33.2 pg (27.0-33.0); MCHC 34.2 % (32.0-36.0); MCV 97 fL (80-95); MPV 9.3 fL (8.0-11.0); Platelet Count 301 10^3/uL (130-400); RBC 4.34 10^6/uL (3.93-5.22); RDW 12.5 % (11.7-14.6); WBC 5.55 10^3/uL (4.4-10.8)
[2022-02-05] MEDS: Normal Saline Flush 10 ML SYR IVP (12:36)
[2022-02-05 13:03] LABS: Ferritin 125 ng/mL (8-252)
== END 2022-02-06 23:59 | disposition home or self-care (01) ==
LOC: INF 03:59
PROVIDERS: PCP Nurse Practitioner Family; Visit Provider Naturopath
DX: E83.119 Hemochromatosis, unspecified (principal)
CPT/HCPCS: 36415; 85027; 99195; 82728

== ENCOUNTER 2022-06-05 00:58 | Outpatient (RCR) | payer MEDICARE, SELFPAY ==
[2022-06-05 12:46] LABS: HCT 42.3 % (36.0-46.0); HGB 14.5 g/dL (11.2-15.7)
[2022-06-05 13:18] LABS: Ferritin 93 ng/mL (8-252)
[2022-06-05] MEDS: Normal Saline Flush 10 ML SYR IVP (13:39)
== END 2022-06-09 23:59 | disposition home or self-care (01) ==
LOC: INF 00:58
PROVIDERS: PCP Nurse Practitioner Family; Visit Provider Naturopath
DX: E83.119 Hemochromatosis, unspecified (principal)
CPT/HCPCS: 36415; 99195; 82728; 85014; 85018

== ENCOUNTER 2022-10-19 04:06 | Outpatient (RCR) | payer MEDICARE, SELFPAY ==
[2022-10-19 13:27] LABS: HCT 42.3 % (36.0-46.0); HGB 14.9 g/dL (11.2-15.7)
[2022-10-19 14:01] LABS: Ferritin 124 ng/mL (8-252)
[2022-10-19] MEDS: Normal Saline Flush 10 ML SYR IVP (15:13)
== END 2022-11-06 23:59 | disposition home or self-care (01) ==
LOC: INF 04:06
PROVIDERS: PCP Nurse Practitioner Family; Visit Provider Naturopath
DX: E83.119 Hemochromatosis, unspecified (principal)
CPT/HCPCS: 36415; 99195; 82728; 85014; 85018

== ENCOUNTER 2023-02-22 04:29 | Outpatient (RCR) | payer MEDICARE, SELFPAY ==
[2023-02-22 13:34] LABS: Abs Immature Grans 0.01 10^3/uL (0.0-0.06); Absolute Basophil Count 0.05 10^3/uL (0.0-0.2); Absolute Eosinophil Count 0.22 10^3/uL (0.0-0.7); Absolute Lymphocyte Count 1.51 10^3/uL (1.2-3.4); Absolute Monocyte Count 0.43 10^3/uL (0.1-0.8); Absolute Neutrophil Count 3.78 10^3/uL (1.2-6.7); Basophils % 0.8; Bilirubin Negative (Negative); Blood Negative (Negative); Clarity Cloudy (Clear); Eosinophils % 3.7; Glucose Negative (Negative); HCT 41.6 % (36.0-46.0); HGB 14.5 g/dL (11.2-15.7); Immature Grans % 0.2; Ketones Negative (Negative); Leukocyte Esterase Small (Negative); Lymphocytes % 25.2; MCHC 34.9 % (32.0-36.0); MCV 95 fL (80-95); MPV 9.6 fL (8.0-11.0); Monocytes % 7.2; Neutrophils % 62.9; Nitrite Negative (Negative); Platelet Count 336 10^3/uL (130-400); RBC 4.39 10^6/uL (3.93-5.22); RDW 12.5 % (11.7-14.6); RDW-SD 43.8 fL; Urobilinogen 0.2 mg/dL (Up to 0.2); pH 5.5 (5-8)
[2023-02-22 13:40] LABS: Bacteria Negative HPF (Negative); Crystals Negative HPF (Negative); Epithelial Cells Few HPF (Negative); Mucus Negative (Negative); Other Cells Few Renal (Negative); RBC Negative HPF (0-2)
[2023-02-22 13:41] LABS: C & S Indicated? Yes; Casts Negative LPF (Negative)
[2023-02-22 13:43] LABS: Hemoglobin A1C 5.6 % (<5.7)
[2023-02-22 14:20] LABS: ALT 23 U/L (14-59); AST 17 U/L (15-37); Albumin 3.5 g/dL (3.4-5.0); Alkaline Phosphatase 69 U/L (46-116); Anion Gap 9.4 mmol/L (3-11); BUN 8 mg/dL (7-18); Bilirubin, Total 0.8 mg/dL (0.2-1.0); CO2 23.6 mmol/L (21.0-32.0); CREATININE 0.9 mg/dL (0.55-1.02); Calcium 9.4 mg/dL (8.5-10.1); Calculated LDL 193 mg/dL (<100); Chloride 107 mmol/L (98-107); Cholesterol 287 mg/dL (<200); Estimated GFR 68.35 (mL/min/1.73m2); Ferritin 113 ng/mL (8-252); Glucose 95 mg/dL (74-106); HDL Cholesterol 57 mg/dL (40-60); Potassium 4.1 mmol/L (3.5-5.1); Sodium 140 mmol/L (136-145); Total Protein 7.3 g/dL (6.4-8.2); Triglyceride 187 mg/dL (<150)
[2023-02-22 22:33] LABS: CRP, High Sensitivity >15.00 mg/L (See Note)
[2023-02-24 09:53] LABS: Homocysteine 10.2 umol/L (5.0-13.9)
== END 2023-03-09 23:59 | disposition home or self-care (01) ==
LOC: INF 04:29
PROVIDERS: PCP Nurse Practitioner Family; Visit Provider Naturopath
DX: E83.119 Hemochromatosis, unspecified (principal); Z13.220 Encounter for screening for lipoid disorders; R30.0 Dysuria
CPT/HCPCS: 36415; 80053; 80061; 83090; 86141; 99195; 81003; 81015; 82728; 83036; 85014; 85018; 85025; 87086

== ENCOUNTER 2023-07-15 03:16 | Outpatient (RCR) | payer MEDICARE, SELFPAY ==
[2023-07-15 13:41] LABS: HCT 42.3 % (36.0-46.0); HGB 14.9 g/dL (11.2-15.7)
[2023-07-15 14:09] LABS: Ferritin 90 ng/mL (8-252)
[2023-07-15] MEDS: Normal Saline Flush 10 ML SYR IVP (14:26)
== END 2023-08-08 23:59 | disposition home or self-care (01) ==
LOC: INF 03:16
PROVIDERS: PCP Nurse Practitioner Family; Visit Provider Naturopath
DX: E83.119 Hemochromatosis, unspecified (principal)
CPT/HCPCS: 36415; 82728; 85014; 85018

== ENCOUNTER 2024-02-16 01:20 | Outpatient (RCR) | payer MEDICARE, SELFPAY ==
[2024-02-16 13:33] LABS: HCT 42.5 % (36.0-46.0); HGB 14.6 g/dL (11.2-15.7)
[2024-02-16 13:58] LABS: Ferritin 121 ng/mL (8-252)
== END 2024-03-09 23:59 | disposition home or self-care (01) ==
LOC: INF 01:20
PROVIDERS: PCP Nurse Practitioner Family; Visit Provider Naturopath
DX: E83.119 Hemochromatosis, unspecified (principal)
CPT/HCPCS: 36415; 99195; 82728; 85014; 85018

== ENCOUNTER 2024-07-19 04:19 | Outpatient (RCR) | payer MEDICARE, SELFPAY ==
[2024-07-19 13:26] LABS: HCT 43.5 % (36.0-46.0); HGB 15.1 g/dL (11.2-15.7)
[2024-07-19] MEDS: Normal Saline Flush 10 ML SYR IVP (13:40)
[2024-07-19 13:54] LABS: Ferritin 141 ng/mL (8-252)
== END 2024-08-07 23:59 | disposition home or self-care (01) ==
LOC: INF 04:19
PROVIDERS: Visit Provider Naturopath
DX: E83.119 Hemochromatosis, unspecified (principal)
CPT/HCPCS: 36415; 99195; 82728; 85014; 85018

== ENCOUNTER 2024-11-08 03:51 | Outpatient (RCR) | payer MEDICARE, SELFPAY ==
[2024-11-08] MEDS: Normal Saline Flush 10 ML SYR IVP (13:21)
[2024-11-08 13:27] LABS: HCT 43.6 % (36.0-46.0); HGB 14.9 g/dL (11.2-15.7)
[2024-11-08 14:44] LABS: Ferritin 83 ng/mL (8-252)
== END 2024-12-07 23:59 | disposition home or self-care (01) ==
LOC: INF 03:51
PROVIDERS: Visit Provider Naturopath
DX: E83.119 Hemochromatosis, unspecified (principal)
CPT/HCPCS: 36415; 99195; 82728; 85014; 85018

== ENCOUNTER 2025-03-26 02:15 | Outpatient (RCR) | payer MEDICARE, SELFPAY ==
[2025-03-26 12:28] LABS: HCT 42.5 % (36.0-46.0); HGB 15.0 g/dL (11.2-15.7); MCH 33.6 pg (27.0-33.0); MCHC 35.3 % (32.0-36.0); MCV 95 fL (80-95); MPV 9.2 fL (8.0-11.0); Platelet Count 310 10^3/uL (130-400); RBC 4.47 10^6/uL (3.93-5.22); RDW 12.5 % (11.7-14.6); RDW-SD 43.8 fL; WBC 5.70 10^3/uL (4.4-10.8)
[2025-03-26 12:49] LABS: Ferritin 61 ng/mL (7-271)
[2025-03-26 13:02] LABS: Iron 134 ug/dL (50-170); Total Iron Binding Capacity 323 ug/dL (250-425); Transferrin Sat 41 % (15-50)
== END 2025-04-08 23:59 | disposition home or self-care (01) ==
LOC: INF 02:15
PROVIDERS: Visit Provider Naturopath
DX: E83.119 Hemochromatosis, unspecified (principal)
CPT/HCPCS: 36415; 85027; 82728; 83540; 83550